=== PATIENT | female | born 1990 | race Caucasian/White ===

== ENCOUNTER 2023-03-26 00:44 | Day surgery (SDC) | payer OTHER, SELFPAY ==
[2023-03-22 16:10] VITALS: BMI 21.1
--- NOTE | 2023-03-22 16:36 | PC.NURSE ---
Report to the Outpatient Waiting Room, entrance under the green pavilion located off [facility], at 0600 on 03-26-23. Planned Procedure Time: 0730. Time changes happen often and if your time is changed the preop area will call you the afternoon before. - You and your visitor will be asked to self-screen and do not enter if you have any COVID symptoms. - A mask is optional within the hospital at this time. Patients may have clear liquids (water, carbonated beverages, clear teas, apple juice) until 3 hours prior to surgery with a maximum of 20 ounces. 0430 - No food from midnight until time of surgery - Infants may have breast milk until 4 hours before surgery, formula 6 hours prior to surgery. - Children will be allowed to drink immediately following surgery. If applicable, please bring a bottle or sippy cup to assist with drinking. Juice, water, soda, and popsicles are readily available. For infants on formula, please bring formula the day of surgery. Pacifiers are allowed. Take the following medications with a SIP of water the morning of surgery: Lorazepam if needed DO NOT STOP ANY OF YOUR OTHER PRESCRIPTION MEDICATIONS PRIOR TO SURGERY ?EXCEPT THE FOLLOWING Medications to discontinue per physician: vitamins and supplements Date to take last dose: 03-23-23 Please no make-up, nail occitan, hairspray, perfume, deodorant, or body powder the day of surgery. No jewelry (including any body piercings) or valuables the day of surgery, leave them at home. Please take a shower or bath the night before, or the morning of, surgery with an antibacterial soap. Wear comfortable, loose fitting clothing. Children are encouraged to wear pajamas. - Jewelry must be removed prior to entering the operating room. Rings and piercings that are not removed may be cut off. - The hospital will not accept responsibility for valuables. - Please leave all valuables, including medications, at home the day of surgery. If you are going home after surgery, a licensed tow truck driver must drive you home. - NO public transportation without another adult if you receive anesthesia. - We recommend that an adult stay with you for 24 hours following discharge. - We also recommend that you do not drive, make important decision, drink alcoholic beverages, or take any drugs that were not prescribed by your health care provider for at least 24 hours after your discharge time. For Pediatric surgeries, we recommend two adults accompany the child home. Follow any additional instructions given to you from your surgeon. If you or anyone in your household have experienced Covid symptoms in the past week, please notify your surgeon or the nurse liaison at the phone number below for possible testing. Telephone instructions given to Mary Guadarrama and asked if any additional questions and then verbalized understanding. Patient advised to call surgeon office or pre surgery nurse liaison [phone] if any additional questions.
[2023-03-26] MEDS: ACETAMINOPHEN 500 MG TABLET 1000 MG PO (07:15)
[2023-03-26] MEDS: LACTATED RINGERS 1,000 ML 30 ML IV CONT (07:15)
[2023-03-26] MEDS: GABAPENTIN 300 MG CAPSULE PO (07:15)
--- NOTE | 2023-03-26 07:16 | PM.IMHP ---
H&P: HPI History of Present Illness Date/Time: 03/26/23 07:16 Chief Complaint: I'm here for my surgery Narrative: Mary presents requesting permanent sterilization via diagnostic laparoscopy, bilateral salpingectomy. Review of Systems Review of Systems: All systems reviewed & are unremarkable except as noted in HPI and below PMFSH Social History Social History Smoking status: Never smoker Second hand tobacco smoke exposure: Yes Alcohol intake: current Alcohol use details: sometimes Substance use: current Substance use type: marijuana Other substance usage details: smokes daily Living arrangements: alone Spiritual care concerns: No Meds Home Medications and Allergies Home Medications Medication Instructions Recorded Confirmed Type escitalopram oxalate 20 mg tablet 20 mg PO DAILY 03/22/23 03/22/23 History lorazepam 0.5 mg tablet 0.5 mg PO PRN PRN Anxiety 03/22/23 03/22/23 History multivitamin 1 tablet PO DAILY 03/22/23 03/22/23 History Allergies Allergy/AdvReac Type Severity Reaction Status Date / Time amoxicillin Allergy Intermediate Hives Verified 03/22/23 16:05 almonds Allergy Mild Itching Uncoded 03/22/23 16:05 Exam Const: General: comfortable and no acute distress Eyes: General: appearance normal, both eyes and all related structures Resp: Effort & Inspection: normal respiratory effort Cardio: Rate: regular rate Rhythm: regular rhythm Skin: General skin exam: normal color and no rashes or lesions noted Psych: Mental Status: mental status grossly normal Assessment and Plan Assessment and plan (1) Sterilization: Code(s): Z30.2 - Encounter for sterilization Status: Acute Plan Diagnostic laparoscopy, bilateral salpingectomy.
--- NOTE | 2023-03-26 07:58 | P.PNAN_ITS ---
Anes - Initial Pre Proc Eval Procedure: Operation Date: 03/26/23 08:30 Proposed Procedures p Diagnostic Laparoscopy, Bilateral Laparoscopic Salpingectomy - Vale Hill DO Date/Time: 03/26/23 07:58 Surgeon: Vale Hill DO Pre Op Diagnosis: desires sterilization Patient Data Age: 32 Gender: F Height: 1.78 m Weight: 67.5 kg Allergies Allergy/AdvReac Type Severity Reaction Status Date / Time amoxicillin Allergy Intermediate Hives Verified 03/26/23 07:41 almonds Allergy Mild Itching Uncoded 03/26/23 07:41 Home Medications Medication Instructions Recorded Confirmed Type escitalopram oxalate 20 mg tablet 20 mg PO DAILY 03/22/23 03/22/23 History lorazepam 0.5 mg tablet 0.5 mg PO PRN PRN Anxiety 03/22/23 03/22/23 History multivitamin 1 tablet PO DAILY 03/22/23 03/22/23 History Patient hx anesthesia problems: none Family hx anesthesia problems: none Results Review: All pre-operative results and documents have been reviewed as part of the pre-operative evaluation. [facility] Social History Social History Smoking status: Never smoker Second hand tobacco smoke exposure: Yes Alcohol intake: current Alcohol use details: sometimes Substance use: current Substance use type: marijuana Other substance usage details: smokes daily Living arrangements: alone Spiritual care concerns: No Anes - Eval Final PreProcedure Day of Procedure 03/26/23 07:58 Patient weight: normal Heart: regular rate and rhythm Lungs: clear to auscultation Airway: Mallampati scale class II Neurological: alert and oriented Last oral intake: >/= 8 hours ASA classification: II Emergent: no Anesthetic plan: proceed Anesthesia type and monitoring: general ETT and standard monitoring Results Review: All pre-operative results and documents have been reviewed as part of the pre- operative evaluation. Informed Consent: The patient's anesthetic plan and its attendant risks and benefits were discussed with the patient/family/POA. Questions were solicited and answers provided to the satisfaction of the patient/family/POA.
--- NOTE | 2023-03-26 08:04 | WPDHPUPDATE1 ---
History and Physical Update Update Date/Time: 03/26/23 08:04 History and Physical has been reviewed, including an updated exam of the patient. There are NO changes in the patient's condition. Risks, benefits, and alternatives have been discussed and questions answered. Patient agrees to proceed with procedure.
[2023-03-26] MEDS: KETOROLAC 15 MG/ML VIAL (*BKC) IV PUSH (09:00)
[2023-03-26] MEDS: BUPivacaine HCL 0.25% PF 30 ML VIAL 14 ML INFILTRATE (09:03)
--- NOTE | 2023-03-26 09:16 | W.PM.PROC2 ---
Procedure Note - Detailed Date of Procedure 03/26/23 Pre-op Diagnosis desires sterilization Post-op Diagnosis Other (Endometriosis Stage I in posterior cul-de-sac) Procedure Performed Diagnostic laparoscopy, bilateral salpingectomy Surgeon Vale Hill, DO Anesthesia General Indications Desires sterilization Findings Normal appearing vulva and vaginal canal. Medium cervix. IUD strings in place. Internally, the liver appeared mildly scarred. The stomach and bowels were unremarkable. Pelvic organs were unremarkable. There were about 4-5 small, superficial endometriosis implants in the posterior cul-de-sac right along the right uterosacral. Description of Procedure Patient was taken to the operating room she was placed under general anesthesia. She was prepped and draped in the normal sterile fashion in a dorsal lithotomy position. No preoperative antibiotics were indicated. A time-out was performed. Speculum was placed in the vagina to visualize IUD strings and confirmed correct location. Once this was confirmed the speculum was removed and gloves were changed. Attention was then turned to the abdomen. The skin below the umbilicus was grasped with 2 penetrating towel clamps the area was injected with local. A small incision was made and a Veress needle was introduced. The saline water drop test was performed to confirm intraperitoneal placement. The abdomen was then filled with CO2 gas to 15 mmHg. The Veress needle was then replaced with a 5 mm Optiview trocar which was inserted under direct visualization. Survey of the abdomen revealed no evidence of bowel or vascular injury. The patient was then placed in steep Trendelenburg position. Additional trocar sites in the right and left lower quadrants were identified, injected and incised. 5 mm trocars were introduced under direct visualization. The CO2 insufflation was then dropped to 12 mmHg. Survey of the abdomen and pelvis revealed the above-mentioned findings. The LigaSure was inserted and the right tube was cauterized and transected off. The specimen was passed off through the assistant men's lacrosse coach port. The procedure was repeated in an identical fashion on the left-hand side. Once the tubes were removed the uterus was elevated and the endometrial implants were ablated using the monopolar cautery hook after ensuring no vessels or the ureter were near the location. Survey of the abdomen revealed good hemostasis in all pedicles. Instruments and trocars were removed and the CO2 gas was allowed to escape. The abdominal incisions were closed with subcuticular 4-0 Monocryl and covered with skin glue. Patient was taken to the recovery room in stable condition. All instrument sponge counts were correct at the conclusion of the procedure. Estimated Blood Loss 5 IV Fluids 700 Drains No Packing No Pathology Yes Complications No immediate complications Condition Stable Disposition PACU
[2023-03-26 09:19] VITALS: BP 123/75; PULSE 87; RESP 11; TEMP 36.6; O2SAT 100
[2023-03-26 09:35] VITALS: BP 126/71; PULSE 64; RESP 18; O2SAT 100
[2023-03-26 09:50] VITALS: BP 117/75; PULSE 66; RESP 22; O2SAT 100
[2023-03-26 10:03] VITALS: BP 114/70; PULSE 70; RESP 16; O2SAT 96
[2023-03-26 10:30] VITALS: BP 116/64; PULSE 74; RESP 16
[2023-03-26] MEDS: oxyCODONE HCL (*CRX) 2.5 MG TAB IR PO (10:55)
[2023-03-26 11:00] VITALS: BP 126/56; PULSE 63; RESP 16
== END 2023-03-26 11:14 | disposition home or self-care (01) ==
PROVIDERS: PCP Family Medicine; Visit Provider Obstetrics & Gynecology Gynecologic Oncology
PROC: (CPT 49320; principal; 2023-03-26 08:30)
DX: Z30.2 Encounter for sterilization (principal); N80.321 Superficial endometriosis of the posterior cul-de-sac; N80.202 Endometriosis of left fallopian tube, unspecified depth; N83.8 Other noninflammatory disorders of ovary, fallopian tube and broad ligament; Z97.5 Presence of (intrauterine) contraceptive device; F12.90 Cannabis use, unspecified, uncomplicated
CPT/HCPCS: 58661; 88302; A9270; J1100; J1885; J2250; J2405; J2704; J3010; J7030; J7120